=== PATIENT | female | born 1990 | race Caucasian/White ===

== ENCOUNTER 2018-01-27 06:26 | Inpatient (IN) | payer BC ==
[2018-01-27] MEDS ORDERED: Misoprostol 200 MCG TAB PR PRN (07:01)
[2018-01-27] MEDS ORDERED: Acetaminophen 500 MG TAB PO PRN (07:01)
[2018-01-27] MEDS ORDERED: Promethazine HCl 25 MG/ML VIAL IM PRN ×2 (07:01→09:53)
[2018-01-27] MEDS ORDERED: HYDROcodone/Acetaminophen 5/325 mg Tablet PO PRN ×3 (07:01→18:22)
[2018-01-27] MEDS ORDERED: Carboprost 250 MCG/ML AMP IM PRN (07:01)
[2018-01-27] MEDS ORDERED: Lidocaine 1% (PF) 30 ML VIAL SC PRN (07:01)
[2018-01-27] MEDS ORDERED: Ibuprofen 800 MG TAB PO PRN (07:01)
[2018-01-27] MEDS ORDERED: Diphenoxylate HCl/Atropine Tablet PO PRN ×2 (07:01)
[2018-01-27] MEDS ORDERED: Methylergonovine 0.2 MG/ML VIAL IM PRN (07:01)
[2018-01-27] MEDS ORDERED: Zolpidem Tartrate 5 MG TAB PO PRN (07:01)
[2018-01-27] MEDS ORDERED: Ondansetron PF 4 MG/2 ML Vial IVP PRN ×2 (07:01→09:53)
[2018-01-27] MEDS ORDERED: LR 500 ML/Oxytocin 10 units 500 ML IV SCH (07:15)
[2018-01-27] MEDS ORDERED: Penicillin G Potassium 5 MILL.UNITS in Sodium Chloride 0.9% 100 ML IVPB SCH (07:15)
[2018-01-27] MEDS: Lactated Ringer's 1,000 ML IV SCH ×3 (07:20→13:00)
[2018-01-27 07:21] VITALS: BMI 28.9
[2018-01-27 07:45] LABS: Hemoglobin 12.9 g/dL (12.0-16.0); Mean Corpuscular HGB CONC 33.4 g/dL (32.0-36.0); Mean Corpuscular Hemoglobin 30.9 pg (27.0-31.0); Mean Corpuscular Volume 92.3 fl (81.0-99.0); Mean Platelet Volume 9.2 fL (7.4-10.4); Platelet Count 168 thou/uL (130-400); RBC Distribution Width 12.4 % (11.5-14.5); Red Blood Cell (RBC) Count 4.17 mill/uL (4.20-5.40); White Blood Cell (WBC) Count 9.5 thou/uL (4.8-10.8)
[2018-01-27] MEDS: Penicillin G Potassium 5 MILL.UNITS VIAL ONE ×2 (07:54→07:55)
[2018-01-27] MEDS ORDERED: DISCONTINUE ALL PREVIOUS NARCOTICS FS SCH (08:15)
[2018-01-27] MEDS ORDERED: Bupivacaine 0.5% 20 ML, fentaNYL Citrate/PF 400 MCG in Sodium Chloride 0.9% 72 ML EPIDURAL SCH ×2 (08:15→10:30)
[2018-01-27 08:18] LABS: HBSAg Index 0.19 S/CO (0-0.99); Hep B Surf Ag Non-Reactive S/CO (NonReactive); Syphilis Antibody Nonreactive (Nonreactive); Syphilis Antibody Index 0.03 S/CO (<1.00 Non-Reactive)
[2018-01-27] MEDS ORDERED: Bupivacaine/Epinephrine 0.25% 30 ML VIAL ONE (09:00)
[2018-01-27] MEDS ORDERED: Naloxone HCl 0.4 mg/ml Vial IVP PRN ×2 (09:53)
[2018-01-27] MEDS ORDERED: Lactated Ringer's 500 ML IV PRN (09:53)
[2018-01-27] MEDS ORDERED: ePHEDrine/0.9% NaCl/PF SYRINGE 50 mg/10 ml SLOW IVP PRN (09:53)
[2018-01-27] MEDS ORDERED: Eucerin (Mineral Oil/Petrolatum,White) 30 gm Jar TOP PRN (09:53)
[2018-01-27] MEDS ORDERED: diphenhydrAMINE 50 MG/ML VIAL IVP PRN (09:53)
[2018-01-27] MEDS ORDERED: Acetaminophen 325 MG TAB PO PRN (09:53)
[2018-01-27] MEDS ORDERED: Fentanyl 4mcg/Marcaine 0.1% Cassette 100 ML EPIDURAL SCH (10:00)
[2018-01-27] MEDS ORDERED: Communication Order-Pharmacy FS SCH (10:00)
[2018-01-27] MEDS: Penicillin G 2.5 MILL.units 2.5 MILL.UNITS in Premix Bag 1 BAG IVPB SCH ×2 (11:21→18:49)
[2018-01-27] MEDS ORDERED: Acetaminophen 1,000 MG in Premix Bag 1 BAG IVPB PRN (13:33)
[2018-01-27] MEDS: LR / Pitocin 40 units/1000 ml 1,000 ML IV PRN ×2 (15:34→16:32)
[2018-01-27] MEDS ORDERED: diphenhydrAMINE 25 MG CAP PO PRN (18:22)
[2018-01-27] MEDS ORDERED: Preparation H Ointment 28 GM TUBE PR PRN (18:22)
[2018-01-27] MEDS ORDERED: LR / Pitocin 40 units/1000 ml 1,000 ML IV SCH (18:22)
[2018-01-27] MEDS ORDERED: Lanolin Ointment 7 GM TUBE TOP PRN (18:22)
[2018-01-27] MEDS ORDERED: Milk Of Magnesia 30 ML UDCUP PO PRN (18:22)
[2018-01-27] MEDS ORDERED: Bisacodyl 10 MG SUPP PR PRN (18:22)
[2018-01-27] MEDS ORDERED: Benzocaine/Menthol 20-0.5% 60 ML CAN TOP PRN (18:22)
[2018-01-27] MEDS ORDERED: Ferrous Sulfate 325 MG TAB PO SCH (18:45)
[2018-01-27] MEDS: Docusate Calcium (SURFAK) 240 MG CAP PO SCH (19:54)
[2018-01-27] MEDS: Ibuprofen 800 MG TAB PO SCH (19:55)
[2018-01-28] MEDS: Ibuprofen 800 MG TAB PO SCH ×2 (05:01→14:17)
[2018-01-28 07:58] VITALS: BP 118/57; TEMP 98.3
[2018-01-28] MEDS: Ferrous Sulfate 325 MG TAB PO SCH ×2 (08:28→16:59)
[2018-01-28] MEDS: Docusate Calcium (SURFAK) 240 MG CAP PO SCH (08:31)
--- NOTE | 2018-01-28 09:00 | PDOC.PP ---
Post Progress Note Post Day #: 1 Subjective: No c/o. well. Lochia normal. PO intake tolerated: yes Flatus: yes Ambulation: yes Vital Signs (12 hours) Temp Pulse Resp BP 01/28/18 08:49 98.3 F 83 16 01/28/18 07:56 98.3 F 83 16 118/57 L 01/28/18 04:00 98.7 F 77 16 111/69 01/27/18 23:56 98.1 F 89 16 101/51 L Weight Weight 158 lb - Physical Examination General: NAD Cardiovascular: no m/r/g, RRR Respiratory: clear to auscultation bilaterally, non-labored breathing Abdominal: + bowel sounds, lochia, no distention, appropriately TTP Psychiatric: A&Ox3, normal affect Result Diagrams: 01/27/18 07:26 Additional Labs: Post Labs Blood Type A POSITIVE 01/27/18 07:26 Hep Bs Antigen Non-Reactive S/CO (NonReactive) 01/27/18 07:26 (1) , delivered, current hospitalization Code(s): O34.219 - MATERNAL CARE FOR UNSP TYPE SCAR FROM PREVIOUS DEL Status: Acute - Assessment/Plan PPD #1 Doing well Routine care D/C home
--- NOTE | 2018-01-29 10:51 | DIS ---
DATE OF ADMISSION: 01/27/2018 DATE OF DISCHARGE: 01/28/2018 ADMITTING DIAGNOSES: 1. Full term in labor. 2. Desires trial of labor after . DISCHARGE DIAGNOSES: Successful . Normal spontaneous vaginal delivery. BRIEF HOSPITAL COURSE: This is a 27-year-old G2, now P2, who presented in active labor. She had a p rior history of a for failure to progress; however, she progressed well to complete and pus benja this time around and delivered vaginally, a healthy baby. Her course was unremarkabl e. There were no complications. She was discharged home on day #1.
== END 2018-01-28 18:15 | disposition home or self-care (01) | DRG 774 ==
LOC: L&D/OP 06:26 → L&D 07:06 → 3SW 18:17
PROVIDERS: ADMIT Family Medicine; ATTEND Family Medicine
PROC: 10E0XZZ Delivery of Products of Conception, External Approach (ICD-10-PCS; principal; 2018-01-27)
PROC: 0KQM0ZZ Repair Perineum Muscle, Open Approach (ICD-10-PCS; 2018-01-27)
DX: O99.824 Streptococcus B carrier state complicating childbirth (principal); O75.2 Pyrexia during labor, not elsewhere classified; Z37.0 Single live birth; O70.1 Second degree perineal laceration during delivery; Z3A.40 40 weeks gestation of pregnancy
CPT/HCPCS: 36415; 51702; 85027; 86780; 86850; 86900; 86901; 87340; 99285; J0131; J2001; J2540; J3010; J3490; J7050; J7120